=== PATIENT | female | born 1950 ===

== ENCOUNTER 2017-11-19 07:56 | Inpatient (IN) | payer MEDICARE ==
[~2017-11-19] VITALS: Ht 152.4 cm; Wt 79.0 kg
[~2017-11-19 07:56] MED LIST: ASPI325 PO; ATEN100 PO; Advil200 M1 PO; CLOP75 PO; HYDCHL25 PO; HYDR1TAB94 PO; LISINOPRIL; LOSARTAN POTASS50 MG PO; METF500 PO; METO50 PO; NAPR500 PO; NEBI5 PO; NITR100 PO; ONDA4ODT MM; OXYACE5T; OXYACE5T PO; POLTRIOPSO OD; PRED1SU OD; Pravastatin Sod40 MG PO; RAMI1.25 PO; RAMI5 PO
[2017-11-19 10:04] LABS: BASOPHILS ABSOLUTE AUTO 0.06 K/mm3 (0.00-0.23); BASOPHILS PERCENT AUTO 1 % (0-2); EOSINOPHILS ABSOLUTE AUTO 0.11 K/mm3 (0.00-0.68); EOSINOPHILS PERCENT AUTO 1 % (0-6); Hematocrit 37.6 % (33.0-51.0); Hemoglobin 12.1 g/dL (11.5-16.0); IMMATURE GRAN ABSOLUTE AUTO 0.05 K/mm3 (0.00-0.10); IMMATURE GRAN PERCENT AUTO 1 % (0-1); LYMPHOCYTES ABSOLUTE AUTO 1.86 K/mm3 (0.84-5.20); LYMPHOCYTES PERCENT AUTO 18 % (21-46); MONOCYTES ABSOLUTE AUTO 0.49 K/mm3 (0.16-1.47); MONOCYTES PERCENT AUTO 5 % (4-13); Mean Corpuscular HGB 27.9 pg (26.0-34.0); Mean Corpuscular HGB Conc 32.2 g/dL (31.5-36.5); Mean Corpuscular Volume 87 fL (80-100); Mean Platelet Volume 9.2 fL (9.1-12.4); NEUTROPHILS ABSOLUTE AUTO 7.74 K/mm3 (1.96-9.15); NEUTROPHILS PERCENT AUTO 75 % (41-73); Platelet Count 326 K/mm3 (150-400); RDW Coefficient Variation 13.7 % (11.7-14.2); RDW Standard Deviation 43.5 fL (35.1-46.3); Red Blood Cell Count 4.34 M/mm3 (3.80-5.20); White Blood Cell Count 10.31 K/mm3 (4.00-11.30)
[2017-11-19 10:24] LABS: Alanine Aminotransfer (ALT/SGP 14 U/L (12-78); Albumin, Blood 3.7 g/dL (3.4-5.0); Albumin/Globulin Ratio 0.8 (0.8-1.8); Alk Phos 98 U/L (50-136); Anion Gap 9 mmol/L (6-16); Aspartate Aminotrans (AST/SGOT 18 U/L (12-37); Bilirubin, Total 0.4 mg/dL (0.1-1.0); Blood Urea Nitrogen 20 mg/dL (8-24); Bun/Creatinine Ratio 31.8 (12.0-20.0); CO2, Blood 26 mmol/L (21-32); Calcium, Blood 9.1 mg/dL (8.5-10.1); Chloride, Blood 106 mmol/L (98-108); Creatinine, Blood 0.63 mg/dL (0.40-1.00); Globulin, Blood 4.6 g/dL (2.2-4.0); Glomerular Filtration Rate >60 (60-); Glucose, Blood 109 mg/dL (70-99); Potassium, Blood 3.8 mmol/L (3.5-5.5); Sodium, Blood 141 mmol/L (136-145); Total Protein, Blood 8.3 g/dL (6.4-8.2)
[2017-11-19 19:02] LABS: Cholesterol 130 mg/dL (50-200); HDL Cholesterol 43 mg/dL (>39); LDL/HDL RATIO 1.4; Low Density Lipoprotein Chol 62 mg/dL (0-110); Triglycerides 126 mg/dL (30-160); Very Low Density Lipoprot Chol 25 mg/dL (6-32)
[2017-11-20] MEDS ORDERED: CLOP75 PO (12:07)
[2017-11-20] MEDS ORDERED: HYDCHL25 PO (12:08)
== END 2017-11-20 13:19 | disposition home or self-care (01) | DRG 66 ==
LOC: ER 07:56 → MEDS 09:50 → ENPENDDIS 11-20 11:53 → MEDS 11-20 13:19
PROVIDERS: Emergency Medicine; Internal Medicine
DX: I63.9 Cerebral infarction, unspecified (principal); Z95.5 Presence of coronary angioplasty implant and graft; I10 Essential (primary) hypertension; E11.9 Type 2 diabetes mellitus without complications; I25.10 Atherosclerotic heart disease of native coronary artery without angina pectoris; I25.2 Old myocardial infarction; M19.90 Unspecified osteoarthritis, unspecified site; Z79.82 Long term (current) use of aspirin; E23.7 Disorder of pituitary gland, unspecified; Z79.02 Long term (current) use of antithrombotics/antiplatelets; Z79.84 Long term (current) use of oral hypoglycemic drugs; I69.334 Monoplegia of upper limb following cerebral infarction affecting left non-dominant side
CPT/HCPCS: 36415; 70450; 70544; 70553; 80053; 80061; 82947; 84484; 85025; 92610; 93005; 93010; 93306; 93880; 97116; 97161; 97166; 97530; 99285-25; A9577; G8978; G8979; G8980; G8987; G8988; G8996; G8997; G8998; J1650

== ENCOUNTER → 2017-12-07 | Outpatient (CLI) | payer OTHER, MEDICARE | LOC: LAB SHORT 12:08 → LAB EV 12:08 | DX: N39.0 Urinary tract infection, site not specified (principal) | CPT/HCPCS: 87077; 87086; 87186 ==

== ENCOUNTER 2018-07-09 12:30 | Day surgery (SDC) | payer MEDICARE ==
[~2018-07-09] VITALS: Ht 152.4 cm; Wt 73.7 kg
[~2018-07-09 12:30] MED LIST changes: +ACET325 PO; +CALCIUM + D3 E1 EACH PO; +LOSARTAN POTAS100 MG PO; +MULTI VITAMIN1 EACH PO; +Metformin HCl500 MG PO; +Pravachol40 MG PO
== END 2018-07-09 14:43 | disposition home or self-care (01) ==
LOC: ORSCSDS 12:30
PROVIDERS: Student in an Organized Health Care Education/Training Program
PROC: 0DBN8ZX Excision of Sigmoid Colon, Via Natural or Artificial Opening Endoscopic, Diagnostic (ICD-10-PCS; principal; 2018-07-09 13:45)
PROC: 0DBH8ZX Excision of Cecum, Via Natural or Artificial Opening Endoscopic, Diagnostic (ICD-10-PCS; principal; 2018-07-09 13:45)
DX: K92.1 Melena (principal); R19.7 Diarrhea, unspecified; D12.0 Benign neoplasm of cecum; D12.5 Benign neoplasm of sigmoid colon; K64.8 Other hemorrhoids; K57.30 Diverticulosis of large intestine without perforation or abscess without bleeding; E11.9 Type 2 diabetes mellitus without complications; I10 Essential (primary) hypertension; Z86.73 Personal history of transient ischemic attack (TIA), and cerebral infarction without residual deficits; I25.10 Atherosclerotic heart disease of native coronary artery without angina pectoris; E78.5 Hyperlipidemia, unspecified; Z79.899 Other long term (current) drug therapy
CPT/HCPCS: 82947; 88305; J7120

== ENCOUNTER → 2019-07-26 | Outpatient (CLI) | payer MEDICARE ==
[2019-07-26 10:40] LABS: Creatinine, Urine Random 40.6 mg/dL (27.00-270.00)
[2019-07-26 10:43] LABS: Microalb/Creat Ratio UR, Rand 54.68 mg/g (0.000-30.000); Microalbumin, Random Urine 22.2 mg/L (0.000-20.000)
== END ==
LOC: LAB EV 07:00
PROVIDERS: Physician Assistant
DX: E11.9 Type 2 diabetes mellitus without complications (principal)
CPT/HCPCS: 82043; 82570

== ENCOUNTER → 2020-01-12 | Outpatient (CLI) | payer MEDICARE, OTHER ==
[2020-01-12 14:51] LABS: Adenovirus F 40/41 Not Detected (NOT DETECT); Astrovirus Not Detected (NOT DETECT); Campylobacter Sp Not Detected (NOT DETECT); Cryptosporidium Not Detected (NOT DETECT); Cyclospora Cayetanensis Not Detected (NOT DETECT); E. Coli O157 Not Detected (NOT DETECT); Entamoeba Histolytica Not Detected (NOT DETECT); Enteroaggregative E. coli-EAEC Not Detected (NOT DETECT); Enteropathogenic E. coli-EPEC Not Detected (NOT DETECT); Enterotoxigenic E. coli-ETEC Not Detected (NOT DETECT); Giardia Lamblia Not Detected (NOT DETECT); Norovirus GI/GII Not Detected (NOT DETECT); Plesiomonas Shigelloides Not Detected (NOT DETECT); Rotavirus A Not Detected (NOT DETECT); Salmonella Sp Not Detected (NOT DETECT); Sapovirus Not Detected (NOT DETECT); Shiga Toxin-prod E. coli-STEC Not Detected (NOT DETECT); Shigella/Enteroin E. coli-EIEC Not Detected (NOT DETECT); Vibrio Cholerae Not Detected (NOT DETECT); Vibrio Sp Not Detected (NOT DETECT); Yersinia Enterocolitica Not Detected (NOT DETECT)
== END | disposition home or self-care (01) ==
LOC: LAB SHORT 09:43 → LAB EV 09:43
PROVIDERS: Student in an Organized Health Care Education/Training Program
DX: R19.7 Diarrhea, unspecified (principal)
CPT/HCPCS: 0097U

== ENCOUNTER 2020-05-23 06:38 | Day surgery (SDC) | payer MEDICARE, OTHER ==
[~2020-05-23] VITALS: Ht 149.9 cm; Wt 74.0 kg
--- NOTE | 2020-05-23 07:56 | NUR ---
History, Chart, Medications and Allergies reviewed before start of procedure. Lungs clear T/O to Auscultation. Pre-Op teaching done. Pt verbalizes understanding.
--- NOTE | 2020-05-23 12:19 | NUR ---
PT ARRIVED TO FLOOR AT APROX 1200 FROM PACU. PT IS A/O. DRESSING TO R KNEE C/D/I, PT WIGGLES TOES AND REPORTS FULL SENSATION IN BLE. PT C/O NEEDING TO VOID, 2 PERSON ASSIST TO BSC, TOLERATED WELL. UP TO CHAIR AT THIS TIME.
--- NOTE | 2020-05-23 18:18 | NUR ---
SHIFT SUMMARY PT A/O POD 0 R TKA. AQUACEL TO RLE C/D/I. PT REPORTS PAIN0/10 AT THIS TIME, DECLINES PAIN MEDICATION. PT WORKED WITH PT, UP TO CHAIR AND BATHROOM 1 PERSON SBA W/FWW + GAIT BELT. TOLERATING SMALL AMT PT, DID HAVE 25ML GREEN EMESIS, TREATED WITH ZOFRAN. PLAN TO DC HOME TOMORROW FOLLOWING MORNING PT.
--- NOTE | 2020-05-24 03:33 | NUR ---
SHIFT SUMMARY: POD 1 RIGHT TKA PATIENT IS ALERT AND ORIENTED X4 WHILE AWAKE. SHE HAS BEEN ASLEEP MAJORITY OF THE SHIFT BUT IS EASILY WOKEN UP. VS ARE WNL AND IS ON RA. PATIENT DENIES PAIN BUT HAS BEEN GIVEN SCHEDULED TORADOL AND TYLENOL. SHE HAS AMBULATED IN THE HALLWAY WELL AMBULATED TO THE BATHROOM MULTIPLE TIMES DURING THE NIGHT. SHE IS A SBA WITH FWW AND GAIT BELT. SHE IS TOLERATING SMALL AMOUNTS OF PO INTAKE AND IS VOIDING. SHE DENIES NAUSEA AND VOMITING. SHE CALLS APPROPRIATELY. CALL LIGHT WITHIN REACH. THE PLAN IS TO DISCHARGE HOME LATER TODAY.
[2020-05-24 05:46] LABS: BASOPHILS ABSOLUTE AUTO 0.02 K/mm3 (0.00-0.23); BASOPHILS PERCENT AUTO 0 % (0-2); EOSINOPHILS ABSOLUTE AUTO 0.01 K/mm3 (0.00-0.68); EOSINOPHILS PERCENT AUTO 0 % (0-6); Hematocrit 32.7 % (33.0-51.0); Hemoglobin 10.4 g/dL (11.5-16.0); IMMATURE GRAN ABSOLUTE AUTO 0.04 K/mm3 (0.00-0.10); IMMATURE GRAN PERCENT AUTO 0 % (0-1); LYMPHOCYTES ABSOLUTE AUTO 1.12 K/mm3 (0.84-5.20); LYMPHOCYTES PERCENT AUTO 11 % (21-46); MONOCYTES ABSOLUTE AUTO 0.61 K/mm3 (0.16-1.47); MONOCYTES PERCENT AUTO 6 % (4-13); Mean Corpuscular HGB 27.9 pg (26.0-34.0); Mean Corpuscular HGB Conc 31.8 g/dL (31.5-36.5); Mean Corpuscular Volume 88 fL (80-100); Mean Platelet Volume 9.7 fL (9.1-12.4); NEUTROPHILS ABSOLUTE AUTO 8.38 K/mm3 (1.96-9.15); NEUTROPHILS PERCENT AUTO 82 % (41-73); Platelet Count 274 K/mm3 (150-400); RDW Coefficient Variation 13.3 % (11.7-14.2); RDW Standard Deviation 42.5 fL (35.1-46.3); Red Blood Cell Count 3.73 M/mm3 (3.80-5.20); White Blood Cell Count 10.18 K/mm3 (4.00-11.30)
[2020-05-24 06:09] LABS: Anion Gap 8 mmol/L (6-16); Blood Urea Nitrogen 27 mg/dL (8-24); Bun/Creatinine Ratio 28.2 (12.0-20.0); CO2, Blood 26 mmol/L (21-32); Calcium, Blood 8.9 mg/dL (8.5-10.1); Chloride, Blood 104 mmol/L (98-108); Creatinine, Blood 0.96 mg/dL (0.40-1.00); Glomerular Filtration Rate >60 (60-); Glucose, Blood 120 mg/dL (70-99); Potassium, Blood 3.9 mmol/L (3.5-5.5); Sodium, Blood 138 mmol/L (136-145)
[2020-05-24] MEDS ORDERED: ONDA4 PO (10:54)
--- NOTE | 2020-05-24 13:22 | NUR ---
DISCHARGED DC'D IV, CATHETER INTACT. REVIEWED DC INSTRUCTIONS W/PT; VERBALIZED UNDERSTANDING. LEFT UNIT IN WC W/POSSESSIONS, DC PAPERWORK, POLAR PACK IN HAND, ACCOMPANIED BY SISTER TO RIDE AWAITING OUTSIDE. CLEARED THERAPY.
== END 2020-05-24 11:17 | disposition home or self-care (01) ==
LOC: ORSCMMR 06:38 → ORD 08:15 → SURS 11:44 → ORD 14:00 → SURS 05-24 11:17 → ORSCMMR 05-24 11:17
PROVIDERS: Orthopaedic Surgery
PROC: 0SRC0JA Replacement of Right Knee Joint with Synthetic Substitute, Uncemented, Open Approach (ICD-10-PCS; principal; 2020-05-23 08:15)
PROC: 8E0Y0CZ Robotic Assisted Procedure of Lower Extremity, Open Approach (ICD-10-PCS; principal; 2020-05-23 08:15)
DX: M17.11 Unilateral primary osteoarthritis, right knee (principal); I10 Essential (primary) hypertension; E11.9 Type 2 diabetes mellitus without complications; I25.10 Atherosclerotic heart disease of native coronary artery without angina pectoris; I25.2 Old myocardial infarction; Z86.73 Personal history of transient ischemic attack (TIA), and cerebral infarction without residual deficits; Z79.84 Long term (current) use of oral hypoglycemic drugs; Z79.899 Other long term (current) drug therapy; Z79.01 Long term (current) use of anticoagulants
CPT/HCPCS: 27447; S2900; 36415; 73560-RT; 80048; 82947; 85025; 88300; 97110; 97110-CQ; 97116; 97116-CQ; 97162; 97530-CQ; A9270; C1776; J0171; J0360; J0690; J0735; J1100; J1885; J2250; J2405; J2704; J2710; J2765; J2795; J3010; J7120

== ENCOUNTER 2020-07-06 10:59 | Day surgery (SDC) | payer MEDICARE, OTHER ==
[~2020-07-06] VITALS: Ht 149.9 cm; Wt 72.8 kg
[~2020-07-06 10:59] MED LIST changes: +ONDA4 PO
--- NOTE | 2020-07-06 11:59 | NUR ---
Ambulatory in Day Surgery History, Chart, Medications and Allergies reviewed before start of procedure. Lungs clear T/O to Auscultation. Patient confirms NPO status and agrees with scheduled surgery. Pre-Op teaching done. Pt verbalizes understanding. Patient States Post-Procedure ride home has been arranged.
--- NOTE | 2020-07-06 14:50 | NUR ---
Patient up to Ambulate independently. Gait steady. Discharge instructions reviewed with patient. Patient verbalizes understanding. Copy given to patient to take home. Discharged via wheelchair to private car for ride home.
== END 2020-07-06 23:36 | disposition home or self-care (01) ==
LOC: ORSCMMR 10:59 → ORD 12:30 → ORSCMMR 23:36
PROVIDERS: Orthopaedic Surgery
PROC: 0SNCXZZ Release Right Knee Joint, External Approach (ICD-10-PCS; principal; 2020-07-06 12:30)
DX: M24.661 Ankylosis, right knee (principal); I10 Essential (primary) hypertension; I25.10 Atherosclerotic heart disease of native coronary artery without angina pectoris; E11.9 Type 2 diabetes mellitus without complications; I25.2 Old myocardial infarction; Z79.01 Long term (current) use of anticoagulants; Z79.84 Long term (current) use of oral hypoglycemic drugs
CPT/HCPCS: 82947; A9270; J0690; J1100; J2250; J2405; J2704; J3010; J7120